=== PATIENT | female | born 1955 | race Caucasian/White ===

== ENCOUNTER 2020-04-30 08:08 | Emergency (ER) | payer BC ==
[2020-04-30] MEDS ORDERED: MECLIZINE HCL 12.5 MG TAB PO ONE (08:24)
[2020-04-30] MEDS ORDERED: ONDANSETRON INJ 4 MG/2 ML VIAL IV ONE (08:24)
[2020-04-30] MEDS ORDERED: SODIUM CHLORIDE 0.9% 1000ML 1,000 ML IVS ONE ×2 (08:25→12:32)
--- NOTE | 2020-04-30 08:28 | ED.PDOC ---
History of Present Illness - General Chief Complaint: General Stated Complaint: dizziness,vomiting Time Seen by Provider: 04/30/20 08:16 - History of Present Illness Initial Comments: 64-year-old female positive past medical history of diabetes mellitus diet- controlled, hypothyroidism, hypertension presents with spouse to ED complaining of acute onset of dizziness described as room spinning. Pt woke from her sleep this morning and was immediately with the dizziness. + recent right otitis media and is being treated with antibiotics. Patient states symptoms began last night around midnight, resolved, and reoccurred this morning. Symptoms are worse with laying flat on her back but slightly improved with laying in the right lateral decubitus position. Associated abd pain, nausea with nonbloody nonbilious emesis, and denies hematemesis. Patient does endorse history of vertigo in the past but only one time. Denies associated chest pain, shortness of breath, cough, nasal congestion, sore throat, diarrhea, dysuria, vision change, neck pain, palpitations. Has been informed that he was positive for COVID-19 at the beginning in April and both him and his quarantined at home. They are both out of the quarantine phase and both have returned to work. He states patient has never been symptomatic. Patient has otherwise with no other signs, symptoms, or complaints. Allergies/Adverse Reactions: Allergies Sulfa Antibiotics Allergy (Verified 04/30/20 08:20) Home Medications: Ambulatory Orders Meclizine HCl [Meclizine 25] 25 - 50 mg PO TID PRN #30 tab 04/30/20 Promethazine Tab [Phenergan Tablet] 12.5 mg PO .Q4H PRN #12 tab 04/30/20 predniSONE See Taper PO DAILY 10 Days #41 tab 04/30/20 Review of Systems - Review of Systems Constitutional: Denies: chills, fever EENTM: States: other - no vision change. Denies: blurred vision, double vision, nose congestion, throat pain Respiratory: Denies: cough, short of breath Cardiology: Denies: chest pain, edema, palpitations Gastrointestinal/Abdominal: States: abdominal pain, nausea, vomiting. Denies: constipation, diarrhea Genitourinary: Denies: dysuria, frequency Musculoskeletal: Denies: back pain, muscle pain, neck pain Skin: Denies: change in color, rash Neurological: States: other - dizziness. Denies: headache Endocrine: Denies: increased thirst Hematologic/Lymphatic: Denies: easy bruising Past Medical History (General) - Patient Medical History Hx Stroke: No Hx Congestive Heart Failure: No Hx Thyroid Disease: Yes Hx Diabetes: Yes Surgical History: cholecystectomy - Vaccination History Hx Influenza Vaccination: Yes Hx Pneumococcal Vaccination: Yes - Social History Hx Tobacco Use: No Family Medical History - Family History Mother Family History: Unknown Living Status: Unknown Physical Exam - Physical Exam General Appearance: Alert, Other - Non-toxic, mild distress Eye Exam: bilateral normal, bilateral other - PERRLA, EOM intact, mild horizontal nystagmus to left that is fatiguable, no vertical or rotary nystagmus, no scleral icterus Ears, Nose, Throat: normal ENT inspection, other - bilateral TM and EAC's with no acute findings Neck: full range of motion, supple Respiratory: lungs clear, normal breath sounds, no respiratory distress, no accessory muscle use Cardiovascular/Chest: normal peripheral pulses, regular rate, rhythm, no edema, no gallop, no JVD, no murmur Gastrointestinal/Abdominal: normal bowel sounds, non tender, soft, other - no CVAT bilaterally, no rebound, no guarding, no peritoneal signs Back Exam: normal inspection, no CVA tenderness Extremity: normal inspection, no pedal edema 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 Unremarkable head impulse testing. + Yair-Hallpike on left. Anthony Maneuver unsuccessful Skin Exam: normal color, warm/dry, other - no pallor, no rash, no jaundice Progress - Progress Progress: Chano Garnica DO Emergency Medicine Physician [facility] #[id number] Appropriate PPE of surgical mask, gown, gloves, and eye protection (if encounter >5 minutes) utilized with every patient encounter; in accordance with hospital policy. Presents for vestibular neuronitis. Low clinical concern for posterior CVA. Exam is consistent with peripheral source and not central source of vertigo. Pt is with known exposure to COVID19 and already quarantined. I will not perform COVID19 swab as it will most likely still be positive and is not the cause of p t's presentation. She has already appropriately quarantined and returned to work; appropriately. I will perform imaging, labs, EKG, provide appropriate pharmacotherapy, and continue to monitor/reassess. Dispo will depend on imaging/lab/ekg results and overall course in ED; however, discharge home is expected with f/u, education, and possible rx. 10:44 Recheck. Continues to have significant nausea/vomiting. Dizziness has not improved. I will order Valium 5mg IV an reassess. 11:39 Recheck. Improved dizziness but exacerbated with any movement and is refractory to Anthony Maneuver. Pt is now getting nauseous due to repeat Anthony maneuver. I will order 1 mg Ativan IV, 10 mg Decadron IV, another 1 L normal saline bolus, and scopolamine patch. 13:16 Rechecked pt. NAD, VSS, resting comfortably in bed and is feeling much better. She is now able to lay on her back and look left without dizziness or n/v. I have discussed radiology results, lab results, my clinical impression, and diagnosis. I have also discussed plan for discharge home with f/u, education, and prescription medications. ED return precautions provided. Pt voices understanding, agrees with plan, and all questions answered. - Results/Orders Results/Orders: EKG @0844: read @0847. NSR @ 78, nl axis, intervals wnl, no ST elevations/depressions. No STEMI. No prior EKG's in [employer] for comparison. 04/30/20 08:30 EKG STAT Laboratory Results - last 24 hr 04/30/20 04/30/20 04/30/20 08:35 08:35 08:35 WBC 5.2 RBC 4.39 Hgb 13.3 Hct 39.9 MCV 91.0 MCH 30.4 MCHC 33.4 RDW 13.6 Plt Count 162 MPV 8.3 Absolute Neuts (auto) 3.90 Absolute Lymphs (auto) 0.90 L Absolute Monos (auto) 0.30 Absolute Eos (auto) 0.00 Absolute Basos (auto) 0.00 Neutrophils % 75.4 Lymphocytes % 17.4 L Monocytes % 6.2 Eosinophils % 0.6 L Basophils % 0.4 Sodium 137 Potassium 4.1 Chloride 98 L Carbon Dioxide 26 Anion Gap 17.1 BUN 15 Creatinine 0.69 BUN/Creatinine Ratio 21.7 H Random Glucose 277 H Serum Osmolality 284.6 Calcium 8.8 Magnesium 1.6 L Total Bilirubin 0.7 AST 35 ALT 48 Alkaline Phosphatase 87 Troponin I < 0.02 Serum Total Protein 7.2 Albumin 4.1 Globulin 3.1 Albumin/Globulin Ratio 1.3 Lipase 27 Urine Color Urine Appearance Urine pH Ur Specific [place] Urine Protein Urine Glucose (UA) Urine Ketones Urine Blood Urine Nitrite Urine Bilirubin Urine Urobilinogen Ur Leukocyte Esterase Urine RBC Urine WBC Ur Epithelial Cells Urine Bacteria 04/30/20 09:00 WBC RBC Hgb Hct MCV MCH MCHC RDW Plt Count MPV Absolute Neuts (auto) Absolute Lymphs (auto) Absolute Monos (auto) Absolute Eos (auto) Absolute Basos (auto) Neutrophils % Lymphocytes % Monocytes % Eosinophils % Basophils % Sodium Potassium Chloride Carbon Dioxide Anion Gap BUN Creatinine BUN/Creatinine Ratio Random Glucose Serum Osmolality Calcium Magnesium Total Bilirubin AST ALT Alkaline Phosphatase Troponin I Serum Total Protein Albumin Globulin Albumin/Globulin Ratio Lipase Urine Color Yellow Urine Appearance Clear Urine pH 8.5 H Ur Specific [place] 1.020 Urine Protein Negative Urine Glucose (UA) 500 H Urine Ketones 40 H Urine Blood Negative Urine Nitrite Negative Urine Bilirubin Negative Urine Urobilinogen 0.2 Ur Leukocyte Esterase Negative Urine RBC 0-1 Urine WBC 1-3 Ur Epithelial Cells 3-5 Urine Bacteria Rare EXAM DESCRIPTION: CT head without contrast CLINICAL HISTORY: dizziness COMPARISON: None available TECHNIQUE: Noncontrast head CT was performed with routine protocol. FINDINGS: Normal zaman-white matter differentiation. Ventricles and sulci are normal for age. No high density hemorrhage, focal edema or shift of the midline. No sulcal effacement. Normal orbital contents. Basilar cisterns appear clear. Intact calvarium with no fracture or lytic lesion. Normal aeration of tympanic cavities and mastoid air cells. No fluid levels in the paranasal sinuses. Skull base appears intact. Symmetrical internal auditory canals. IMPRESSION: No acute intracranial pathologic process. This exam was performed according to our departmental dose-optimization program, which includes automated exposure control, adjustment of the mA and/or kV according to patient size and/or use of iterative reconstruction technique. Total DLP equals 859.97 mGycm. Electronically signed by: Dimitri Cristobal MD 04/30/2020 9:51 AM TELEPHONE MAINTAINER Vital Signs - 24 hr 04/30/20 04/30/20 04/30/20 08:18 09:13 10:00 Temperature 96.5 F L Pulse Rate [ 86 89 89 Left Brachial] Respiratory 20 20 16 Rate Blood Pressure 158/70 147/68 138/76 [Left Arm] O2 Sat by Pulse 97 96 92 L Oximetry 04/30/20 04/30/20 11:09 12:59 Temperature Pulse Rate [ 87 89 Left Brachial] Respiratory 20 16 Rate Blood Pressure 123/72 126/63 [Left Arm] O2 Sat by Pulse 93 L 95 Oximetry Departure - Departure Clinical Impression: Vestibular neuronitis of right ear Time of Disposition: 13:17 Disposition: Discharge to Home or Self Care Condition: Excellent Departure Forms: ED Discharge - Pt. Copy, Patient Portal Self Enrollment Instructions: Labyrinthitis, Vertigo (a Type of Dizziness) (DC) Referrals: Lydia Damon MD [Primary Care Provider] - 05/03/20 Prescriptions: Meclizine HCl [Meclizine 25] 25 - 50 mg PO TID PRN #30 tab PRN Reason: Dizziness Promethazine Tab [Phenergan Tablet] 12.5 mg PO .Q4H PRN #12 tab PRN Reason: nausea/vomiting/dizziness predniSONE See Taper PO DAILY 10 Days #41 tab Home Medications: Ambulatory Orders Meclizine HCl [Meclizine 25] 25 - 50 mg PO TID PRN #30 tab 04/30/20 Promethazine Tab [Phenergan Tablet] 12.5 mg PO .Q4H PRN #12 tab 04/30/20 predniSONE See Taper PO DAILY 10 Days #41 tab 04/30/20
[2020-04-30] MEDS ORDERED: PROMETHAZINE HCL INJ 12.5 MG in SODIUM CHLORIDE 0.9% 50ML 50 ML IVPB ONE (09:49)
--- NOTE | 2020-04-30 09:53 | CT ---
EXAM DESCRIPTION: CT head without contrast CLINICAL HISTORY: dizziness COMPARISON: None available TECHNIQUE: Noncontrast head CT was performed with routine protocol. FINDINGS: Normal zaman-white matter differentiation. Ventricles and sulci are normal for age. No high density hemorrhage, focal edema or shift of the midline. No sulcal effacement. Normal orbital contents. Basilar cisterns appear clear. Intact calvarium with no fracture or lytic lesion. Normal aeration of tympanic cavities and mastoid air cells. No fluid levels in the paranasal sinuses. Skull base appears intact. Symmetrical internal auditory canals. IMPRESSION: No acute intracranial pathologic process. This exam was performed according to our departmental dose-optimization program, which includes automated exposure control, adjustment of the mA and/or kV according to patient size and/or use of iterative reconstruction technique. Total DLP equals 859.97 mGycm. Electronically signed by: Dimitri Cristobal MD 04/30/2020 9:51 AM BOATBUILDER APPRENTICE [employer]
[2020-04-30] MEDS ORDERED: diazePAM INJ 10 MG/2 ML SYG IV ONE (10:56)
[2020-04-30] MEDS ORDERED: SCOPOLAMINE PATCH 1.5MG 1 EA TD ONE (12:32)
[2020-04-30] MEDS ORDERED: DEXAMETHASONE INJ 10 MG/ML VIAL IV ONE (12:32)
[2020-04-30 14:05] VITALS: BP 132/62; TEMP 98.2; O2SAT 93
== END 2020-04-30 14:00 | disposition home or self-care (01) ==
LOC: ER 08:08
DX: H81.21 Vestibular neuronitis, right ear (principal); U07.1 COVID-19; R10.9 Unspecified abdominal pain; R11.2 Nausea with vomiting, unspecified; I10 Essential (primary) hypertension; E03.9 Hypothyroidism, unspecified; E11.9 Type 2 diabetes mellitus without complications; Z90.49 Acquired absence of other specified parts of digestive tract; Z79.899 Other long term (current) drug therapy; Z88.2 Allergy status to sulfonamides
CPT/HCPCS: 36415; 70450; 80053; 81001; 83690; 83735; 84484; 85025; 93005; A4216; J1100; J2060; J2405; J2550; J3360; J7030